=== PATIENT | female | born 1980 | race Caucasian/White ===

== ENCOUNTER 2024-07-01 15:55 | Emergency (ER) | payer OTHER, SELFPAY ==
[2024-07-01 16:03] VITALS: BP 182/107; PULSE 114; RESP 20; TEMP 37.2; O2SAT 99; BMI 31.2
--- NOTE | 2024-07-01 16:08 | CRLHL7_ITS ---
For Patients: As a result of the Century Cures Act, medical imaging exams and procedure reports are released immediately into your electronic medical record. You may view this report before your referring provider. If you have questions, please contact your health care provider. INDICATION: Pain/fall COMPARISON: None. TECHNIQUE: Three radiographic view(s) of the left ankle. FINDINGS: Acute comminuted nvqc-[id number]-nejlssgafg displaced fracture of the distal fibular metadiaphysis. The most inferior portion of the fraction is located at the level of the distal tibiofibular syndesmosis. No substantial degenerative change. IMPRESSION: Acute comminuted dmnn-he-rxjsgceysw displaced fracture of the distal fibular metadiaphysis. Dictated by Galo Zimmerman MD @ 07/01/2024 4:39:30 PM (Electronically Signed)
--- NOTE | 2024-07-01 16:48 | ED_ITS ---
HPI - General Adult General Chief complaint: Extremity Pain/Injury, Lower Stated complaint: L ankle injury Time Seen by Provider: 07/01/24 16:34 Source: patient Mode of arrival: wheelchair Limitations: no limitations History of Present Illness HPI narrative: 44-year-old female coming in today complaining of left ankle pain. Patient went to walk her dogs, lost her footing on the edge of the sidewalk and fell. [place] a pop on the left. Slightly spring the right as well but the right feels fine. She cannot put weight on the left side. Denies any other injury. Did not hit her head or lose consciousness. Related Data Home Medications ?Medication ?Instructions ?Recorded ?Confirmed No Known Home Medications 07/01/24 07/01/24 Allergies Allergy/AdvReac Type Severity Reaction Status Date / Time No Known Drug Allergies Allergy Verified 07/01/24 16:06 Review of Systems Status of ROS: Reports: 6 or more systems reviewed and unremarkable except as noted in History and below Exam Const: Vital Signs, click to edit/add: Vital Signs - 24 hr 07/01/24 16:03 Temperature 99.0 F Pulse Rate [Pulse Oximeter] 114 H Respiratory Rate 20 Blood Pressure [Ri ght Upper Arm] 182/107 H Pulse Oximetry 99 Oxygen Delivery Me thod Room Air Course Course ED Course: X-ray was done on the left ankle showing a fibular fracture. Discussed with orthopedics who are concerned that this is an unstable fracture. They requested a stress view which was obtained. They recommended a stirrup splint, nonweightbearing and follow up with Ortho. Vital Signs Vital signs: Initial Vital Signs Temperature 99.0 F 07/01/24 16:03 Temperature Source Temporal Artery Scan 07/01/24 16:03 Pulse Rate 114 H 07/01/24 16:03 Pulse Rhythm Regular 07/01/24 16:03 Respiratory Rate 20 07/01/24 16:03 Blood Pressure 182/107 H 07/01/24 16:03 Blood Pressure Mean 132 H 07/01/24 16:03 Blood Pressure Position Sitting 07/01/24 16:03 Pulse Oximetry 99 07/01/24 16:03 Oxygen Delivery Method Room Air 07/01/24 16:03 Vital Signs Temperature 99.0 F 07/01/24 16:03 Pulse Rate 114 H 07/01/24 16:03 Respiratory Rate 20 07/01/24 16:03 Blood Pressure 182/107 H 07/01/24 16:03 Pulse Oximetry 99 07/01/24 16:03 Oxygen Delivery Method Room Air 07/01/24 16:03 Temperature 99.0 F 07/01/24 16:03 Pulse Rate 114 H 07/01/24 16:03 Respiratory Rate 20 07/01/24 16:03 Blood Pressure 182/107 H 07/01/24 16:03 Pulse Oximetry 99 07/01/24 16:03 Oxygen Delivery Method Room Air 07/01/24 16:03 Medications Administered Medications: Discontinued Medications Generic Name Dose Route Start Last Admin Trade Name Jay PRN Reason Stop Dose Admin Ibuprofen 800 mg 07/01/24 16:45 07/01/24 16:49 Ibuprofen 400 Mg Tablet PO 07/01/24 16:46 800 mg ONCE ONE Administration Medical Decision Making MDM Narrative Medical decision making narrative: 44-year-old female with a fibular fracture. Patient was splinted in the ED today. She will be nonweightbearing. Follow-up with ortho. Imaging Data X-ray ankle: Attestation: I have reviewed the pertinent imaging results. Radiologist's impression: Pain/fall COMPARISON: None. TECHNIQUE: Three radiographic view(s) of the left ankle. FINDINGS: Acute comminuted [id number]-hv-[id number] displaced fracture of the distal fibular metadiaphysis. The most inferior portion of the fraction is located at the level of the distal tibiofibular syndesmosis. No substantial degenerative change. IMPRESSION: Acute comminuted jdij-kr-hjdqhvcsxa displaced fracture of the distal fibular metadiaphysis. Discharge Plan Discharge Clinical Impression: Closed left fibular fracture Additional Instructions: You are to be nonweightbearing-meaning that you cannot put weight on that foot when you are walking. Recommend using crutches. You will need to follow-up with orthopedics at the end of this week or early next week. Wear splint at all times. Okay to use Tylenol or ibuprofen for pain. Prescriptions: No Action No Known Home Medications Follow Up/Referrals: Provider,Not a Local [Primary Care Provider] - Stand Alone Forms: [employer] Info Instructions
[2024-07-01] MEDS: IBUPROFEN 400 MG TABLET 800 MG PO (16:49)
--- NOTE | 2024-07-01 17:06 | CRLHL7_ITS ---
For Patients: As a result of the Century Cures Act, medical imaging exams and procedure reports are released immediately into your electronic medical record. You may view this report before your referring provider. If you have questions, please contact your health care provider. Indication: GRAVITY STRESS VIEW Technique: [place] stress view of the left ankle. Comparison: Same day radiograph. Findings: Moderately comminuted and mildly to moderately displaced distal fibular meta diaphyseal fracture. Similar alignment when compared to the prior examination. Moderate soft tissue swelling along the lateral aspect of the ankle. Impression: Moderately comminuted and mildly to moderately displaced distal fibular meta diaphyseal fracture. Similar alignment when compared to the prior examination. Dictated by Kaveh Todd MD @ 07/01/2024 5:49:13 PM (Electronically Signed)
== END 2024-07-01 18:30 | disposition home or self-care (01) ==
PROVIDERS: Emergency Provider Family Medicine
DX: S82.832A Other fracture of upper and lower end of left fibula, initial encounter for closed fracture (principal); W01.0XXA Fall on same level from slipping, tripping and stumbling without subsequent striking against object, initial encounter; Y93.K1 Activity, walking an animal; Y92.480 Sidewalk as the place of occurrence of the external cause
CPT/HCPCS: 73600; 73610; 99283; 99284; A9270